=== PATIENT | male | born 1990 | race Caucasian/White ===

== ENCOUNTER 2018-06-28 20:58 | Emergency (ER) | payer SELFPAY ==
[2018-06-28 21:50] VITALS: BP 117/75; PULSE 66; RESP 20; TEMP 99; O2SAT 99
--- NOTE | 2018-06-28 22:30 | ED PDOC ---
HPI: Skin/Bite Injury Chief Complaint (Provider): Lesion on lower inner lip History Per: Patient History/Exam Limitations: no limitations Onset/Duration Of Symptoms: Days Additional Complaint(s): 27 yo male with no medical problems presents for evaluation of lesion on the lower left lip x 3 days. Pt denies similar in the past. Pt states it does not hurt however he feels it and has been biting the area. Pt states he has not used anything for it. <Gabriela Wallace - Last Filed: 07/02/18 23:44> <Denisha Castro - Last Filed: 07/03/18 20:59> Time Seen by Provider: 06/28/18 21:56 Chief Complaint (Nursing): Dental Pain Past Medical History Reviewed: Historical Data, Nursing Documentation, Vital Signs Vital Signs: Last Vital Signs Temp 99 F 06/28/18 21:48 Pulse 66 06/28/18 21:48 Resp 20 06/28/18 21:48 BP 117/75 06/28/18 21:48 Pulse Ox 99 06/28/18 21:48 - Medical History PMH: No Chronic Diseases - Surgical History Surgical History: No Surg Hx - Family History Family History: States: Unknown Family Hx - Living Arrangements Living Arrangements: With Family - Social History Current smoker - smoking cessation education provided: No - Immunization History Hx Tetanus Toxoid Vaccination: No Hx Influenza Vaccination: No Hx Pneumococcal Vaccination: No <Gabriela Wallace - Last Filed: 07/02/18 23:44> Vital Signs: Last Vital Signs Temp 99 F 06/28/18 21:48 Pulse 66 06/28/18 21:48 Resp 20 06/28/18 21:48 BP 117/75 06/28/18 21:48 Pulse Ox 99 07/03/18 00:55 <Denisha Castro - Last Filed: 07/03/18 20:59> - Home Medications Home Medications: Ambulatory Orders Medication Instructions Recorded Amoxicillin/Clavulanate [Augmentin 1 tab PO BID #20 tab 06/28/18 875 MG-125 MG] - Allergies Allergies/Adverse Reactions: Allergies Allergy/AdvReac Type Severity Reaction Status Date / Time No Known Allergies Allergy Verified 06/28/18 21:48 Review of Systems ROS Statement: Except As Marked, All Systems Reviewed And Found Negative Constitutional: Negative for: Fever, Chills Cardiovascular: Negative for: Chest Pain, Palpitations Respiratory: Negative for: Cough, Shortness of Breath Gastrointestinal: Negative for: Nausea, Vomiting, Abdominal Pain, Diarrhea <Gabriela Wallace - Last Filed: 07/02/18 23:44> Physical Exam - Reviewed Nursing Documentation Reviewed: Yes Vital Signs Reviewed: Yes - Physical Exam Appears: Positive for: Well, Non-toxic, No Acute Distress Head Exam: Positive for: ATRAUMATIC, NORMAL INSPECTION, NORMOCEPHALIC Skin: Positive for: Normal Color, Warm, DRY Eye Exam: Positive for: Normal appearance ENT: Positive for: Normal ENT Inspection, Other ((+) shallow white ulcer on the right lower lip ) Neck: Positive for: Normal Cardiovascular/Chest: Negative for: Regular Rate, Rhythm Respiratory: Negative for: Accessory Muscle Use, Respiratory Distress Back: Positive for: Normal Inspection Extremity: Positive for: Normal ROM Neurologic/Psych: Positive for: Alert, Oriented, Gait <Gabriela Wallace - Last Filed: 07/02/18 23:44> - ECG O2 Sat by Pulse Oximetry: 99 <Gabriela Wallace - Last Filed: 07/02/18 23:44> Disposition - Patient ED Disposition Is Patient to be Admitted: No Counseled Patient/Family Regarding: Diagnosis, Need For Followup, Rx Given - Disposition Disposition: Routine/Home Disposition Time: 22:29 <Gabriela Wallace - Last Filed: 07/02/18 23:44> <Denisha Castro J - Last Filed: 07/03/18 20:59> - Clinical Impression Clinical Impression: Oral ulcer - Disposition Referrals: [facility] [Outside] Condition: STABLE Prescriptions: Amoxicillin/Clavulanate [Augmentin 875 MG-125 MG] 1 tab PO BID #20 tab Instructions: Mouth Sores Forms: [facility] ([place]) - [place] / [employer] / Resident Statement MD/DO has reviewed & agrees with the documentation as recorded. <Denisha Castro - Last Filed: 07/03/18 20:59>
== END 2018-06-28 22:36 | disposition home or self-care (01) ==
LOC: H.ER 20:58
DX: K12.1 Other forms of stomatitis (principal)